=== PATIENT | female | born 1945 | race Caucasian/White ===

== ENCOUNTER → 2018-03-30 | Outpatient (CLI) | payer MEDICARE, OTHER ==
--- NOTE | 2018-03-30 15:25 | Diagnostic Imaging Report ---
Indication: Small palpable neck mass on the lower neck, history of lung carcinoma Technique: Sagittal T 2 fast spin-echo, coronal T2 fat saturated, coronal T2 STIR, coronal T1 fast spin echo, axial T2 STIR, axial T1 fast spin echo, pre and postcontrast axial T1 fat saturated, postcontrast coronal T1 fat saturated images obtained through the neck Comparison: Reference made to thyroid ultrasound dated 07/12/2013 Findings: The palpable abnormality in the left neck as marked by a marker. Deep to this, there is a 5 mm node. Also deep to it is a normal-appearing submandibular gland. No associated unusual contrast enhancement. Normal appearing salivary glands are demonstrated bilaterally No other evidence of cervical mass or adenopathy demonstrated. Enhancing 3.8 x 1.6 cm mass is seen in the right thyroid lobe, corresponding to abnormality described on prior 2012 ultrasound. This demonstrates evidence of cystic components as well. The left thyroid lobe demonstrates a subcentimeter nodule which does not enhance, only readily appreciated on the postcontrast images. There is some metallic susceptibility artifact in the region of the mouth, consistent with dental amalgam. Small high T2 signal focus in what appears to be the alveolar ridge of the left maxilla could indicate a small dental abscess or a small inferior left maxillary sinus mucous retention cyst. Small mucous retention cyst is also seen in the right maxillary sinus. The orbits, optic globes, visualized intracranial structures all appear unremarkable. Impression: Small 5 mm lymph node is seen deep to marker palpable abnormality in the left neck No other corresponding cervical mass or adenopathy demonstrated 3.8 x 1.6 cm right thyroid lobe mass, also previously described on 07/12/2013 ultrasound and also previously biopsied Possible small left alveolar ridge dental abscess versus small inferior left maxillary sinus mucous retention cyst Minimal sinus disease on the right maxillary sinus
== END | disposition home or self-care (01) ==
LOC: MRI 09:49
DX: R22.1 Localized swelling, mass and lump, neck (principal); Z85.118 Personal history of other malignant neoplasm of bronchus and lung; J32.0 Chronic maxillary sinusitis
CPT/HCPCS: 70543; A9585